=== PATIENT | male | born 1945 | race Caucasian/White ===

== ENCOUNTER 2021-12-27 10:31 | Outpatient (CLI) | payer MEDICARE, BC ==
[2021-12-27 11:28] LABS: #Eosinphils 0.2 10x3/uL (0.0-0.5); #Monocytes 0.4 10x3/uL (0.0-1.1); #Neutrophils 4.3 10x3/uL (1.5-8.4); %Basophils 0.3 % (0.0-2.0); %Eosinophils 3.2 % (0.0-6.0); %Monocytes 7.4 % (0.0-10.0); %Neutrophils 73.9 % (40.0-75.0); Hemoglobin 15.8 g/dL (13.5-17.5); Mean Corpuscular HGB CONC 32.7 g/dL (32.0-36.0); Mean Corpuscular Hemoglobin 30.9 pg (27.0-33.0); Mean Corpuscular Volume 94.3 fl (81.2-95.1); Mean Platelet Volume 9.1 fl (7.4-10.4); Platelet Count 216 10x3/uL (150-450); RBC Distribution Width 13.2 % (11.5-14.5); Red Blood Cell (RBC) Count 5.12 10x6/uL (4.32-5.72); White Blood Cell (WBC) Count 5.9 10x3/uL (3.5-10.5)
[2021-12-27 11:50] LABS: ALT (SGPT) 25 U/L (8-55); AST (SGOT) 20 U/L (5-34); Albumin 4.2 g/dL (3.4-4.8); Alkaline Phosphatase 56 U/L (40-110); Anion Gap 11 mmol/L (10-20); BUN (Urea Nitrogen) 19 mg/dL (8.4-25.7); Bilirubin, Total 0.5 mg/dL (0.2-1.2); Calc. Creatinine Clearance 0 mL/min (70-130); Calcium 8.9 mg/dL (7.8-10.44); Carbon Dioxide 28 mmol/L (23-31); Chloride 104 mmol/L (98-107); Globulin 2.8 g/dL (2.4-3.5); Glucose 112 mg/dL (83-110); Potassium 4.5 mmol/L (3.5-5.1); Sodium 138 mmol/L (136-145)
[2021-12-27 19:14] LABS: SARS-CoV-2 PCR by NAA Not Detected (NotDetected)
== END 2021-12-27 10:32 | disposition home or self-care (01) ==
LOC: LABBT 10:31
PROVIDERS: ATTEND Internal Medicine Cardiovascular Disease
DX: Z01.812 Encounter for preprocedural laboratory examination (principal); Z20.822 Contact with and (suspected) exposure to COVID-19
CPT/HCPCS: 80053; 85025; U0003; U0005

== ENCOUNTER 2022-01-01 05:54 | Day surgery (SDC) | payer MEDICARE, BC ==
[2021-12-27 09:00] VITALS: BMI 31.8
[2022-01-01] MEDS ORDERED: Midazolam HCl 2 mg/2 ml Vial ONE (07:01)
[2022-01-01] MEDS ORDERED: Fentanyl 100 MCG/2 ML VIAL ONE (07:02)
[2022-01-01] MEDS ORDERED: Heparin 10,000 UNITS/ 10 ML VIAL ONE (07:31)
[2022-01-01 10:24] LABS: ALT (SGPT) 18 U/L (8-55); AST (SGOT) 15 U/L (5-34); Albumin 3.7 g/dL (3.4-4.8); Alkaline Phosphatase 53 U/L (40-110); Bilirubin, Direct 0.2 mg/dL (0.1-0.3); Bilirubin, Total 0.5 mg/dL (0.2-1.2); Cholesterol 233 mg/dl (< 200 Desired); HDL Cholesterol 39 mg/dL (>60 Neg Risk); LDL Cholesterol, Calculated 158 mg/dL; Protein, Total 6.5 g/dL (5.8-8.1); Triglycerides 182 mg/dL (Less than 150)
== END 2022-01-01 12:35 | disposition home or self-care (01) ==
LOC: CCL 05:54
PROVIDERS: ATTEND Internal Medicine Cardiovascular Disease
PROC: 4A023N7 Measurement of Cardiac Sampling and Pressure, Left Heart, Percutaneous Approach (ICD-10-PCS; principal; 2022-01-01)
PROC: B2111ZZ Fluoroscopy of Multiple Coronary Arteries using Low Osmolar Contrast (ICD-10-PCS; 2022-01-01)
DX: I35.0 Nonrheumatic aortic (valve) stenosis (principal); I25.10 Atherosclerotic heart disease of native coronary artery without angina pectoris; I25.84 Coronary atherosclerosis due to calcified coronary lesion; I10 Essential (primary) hypertension; N40.0 Benign prostatic hyperplasia without lower urinary tract symptoms; I45.10 Unspecified right bundle-branch block; K21.9 Gastro-esophageal reflux disease without esophagitis; Z87.891 Personal history of nicotine dependence; Z79.899 Other long term (current) drug therapy
CPT/HCPCS: 36415; 80061; 80076; J1644; J2250; J3010

== ENCOUNTER 2022-01-10 12:14 | Outpatient (CLI) | payer MEDICARE, BC ==
[2022-01-10 13:35] LABS: Hemoglobin 14.5 g/dL (13.5-17.5); Mean Corpuscular Hemoglobin 30.1 pg (27.0-33.0); Mean Platelet Volume 9.6 fl (7.4-10.4); Platelet Count 250 10x3/uL (150-450); Red Blood Cell (RBC) Count 4.82 10x6/uL (4.32-5.72); White Blood Cell (WBC) Count 6.3 10x3/uL (3.5-10.5)
[2022-01-10 13:46] LABS: Anion Gap 14 mmol/L (10-20); BUN (Urea Nitrogen) 17 mg/dL (8.4-25.7); Calc. Creatinine Clearance 0 mL/min (70-130); Calcium 9.1 mg/dL (7.8-10.44); Carbon Dioxide 26 mmol/L (23-31); Chloride 105 mmol/L (98-107); Glucose 92 mg/dL (83-110); Potassium 4.7 mmol/L (3.5-5.1); Sodium 140 mmol/L (136-145)
[2022-01-10 23:04] LABS: SARS-CoV-2 PCR by NAA Not Detected (NotDetected)
== END 2022-01-10 12:15 | disposition home or self-care (01) ==
LOC: LABBT 12:14
PROVIDERS: ATTEND Thoracic Surgery (Cardiothoracic Vascular Surgery)
DX: Z01.812 Encounter for preprocedural laboratory examination (principal); I25.10 Atherosclerotic heart disease of native coronary artery without angina pectoris; Z20.822 Contact with and (suspected) exposure to COVID-19
CPT/HCPCS: 80048; 85027; 86850; 86900; 86901; U0003; U0005

== ENCOUNTER 2022-01-10 12:30 | Inpatient (IN) | payer MEDICARE, BC ==
[2022-01-10 13:35] LABS: Hemoglobin 14.5 g/dL (13.5-17.5); Mean Corpuscular Hemoglobin 30.1 pg (27.0-33.0); Mean Platelet Volume 9.6 fl (7.4-10.4); Platelet Count 250 10x3/uL (150-450); Red Blood Cell (RBC) Count 4.82 10x6/uL (4.32-5.72); White Blood Cell (WBC) Count 6.3 10x3/uL (3.5-10.5)
[2022-01-10 13:46] LABS: Anion Gap 14 mmol/L (10-20); BUN (Urea Nitrogen) 17 mg/dL (8.4-25.7); Calc. Creatinine Clearance 0 mL/min (70-130); Calcium 9.1 mg/dL (7.8-10.44); Carbon Dioxide 26 mmol/L (23-31); Chloride 105 mmol/L (98-107); Glucose 92 mg/dL (83-110); Potassium 4.7 mmol/L (3.5-5.1); Sodium 140 mmol/L (136-145)
[2022-01-10 23:04] LABS: SARS-CoV-2 PCR by NAA Not Detected (NotDetected)
[2022-01-15] MEDS ORDERED: Dexamethasone 4 mg/ml Vial ONE (06:21)
[2022-01-15] MEDS ORDERED: Albumin 5% 500 ML ONE (06:21)
[2022-01-15] MEDS ORDERED: EPINEPHrine 1 MG/ML AMP ONE (06:21)
[2022-01-15] MEDS ORDERED: Bupivacaine PF 0.5% 30 ML VIAL ONE (06:21)
[2022-01-15] MEDS ORDERED: Heparin 10,000 UNITS/1 ML VIAL 30,000 UNITS in Sodium Chloride 0.9% 1,000 ML FS SCH (06:45)
[2022-01-15] MEDS ORDERED: Midazolam HCl 2 mg/2 ml Vial ONE (06:52)
[2022-01-15] MEDS ORDERED: Dexmedetomidine 200 MCG/2 ML VIAL ONE (06:52)
[2022-01-15] MEDS ORDERED: Phenylephrine 10 MG/ML VIAL ONE (06:52)
[2022-01-15] MEDS ORDERED: Fentanyl 250 MCG/5 ML VIAL ONE (06:52)
[2022-01-15] MEDS ORDERED: Sodium Chloride 0.9% 10 ML ONE (06:58)
[2022-01-15] MEDS ORDERED: Lidocaine 1% MPF 2 ML VIAL ONE (07:01)
[2022-01-15] MEDS ORDERED: Heparin 5,000 UNITS/ML VIAL ONE (07:40)
[2022-01-15] MEDS ORDERED: Ondansetron PF 4 MG/2 ML Vial ONE (07:40)
[2022-01-15] MEDS ORDERED: Thrombin 5000 UNITS/5 ML VIAL ONE (07:40)
[2022-01-15] MEDS ORDERED: Potassium Chloride 60 MEQ/30 ML VIAL ONE (07:40)
[2022-01-15] MEDS ORDERED: ePHEDrine 50 MG/ML VIAL ONE (07:40)
[2022-01-15] MEDS ORDERED: Dexamethasone 20 MG/5 ML VIAL ONE (07:40)
[2022-01-15] MEDS ORDERED: Lidocaine 1% PF 5 ML VIAL ONE (07:40)
[2022-01-15] MEDS ORDERED: Vecuronium 10 MG VIAL ONE (07:40)
[2022-01-15] MEDS ORDERED: Ketorolac Tromethamine 30 MG/ML VIAL ONE (07:40)
[2022-01-15] MEDS ORDERED: PROPOFOL 200 MG/20 ML VIAL ONE (07:40)
[2022-01-15] MEDS ORDERED: Heparin 30,000 units/30 ml VIAL ONE (07:40)
[2022-01-15] MEDS ORDERED: Rocuronium Bromide 10 MG/ML (10ML VIAL) ONE (07:40)
[2022-01-15] MEDS ORDERED: Magnesium Sulfate 1 GM/2 ML VIAL ONE (07:40)
[2022-01-15] MEDS ORDERED: Calcium Chloride 1 GM/10 ML Abboject SYRINGE ONE (07:40)
[2022-01-15] MEDS ORDERED: Cardioplegic Soln 1,000 ML BAG ONE (07:40)
[2022-01-15] MEDS ORDERED: Lidocaine 2% PF 100 mg/5 ml Syringe ONE (07:40)
[2022-01-15] MEDS ORDERED: Aminocaproic Acid 5 GM/20 ML VIAL ONE (07:40)
[2022-01-15] MEDS ORDERED: Sodium Bicarb 50 MEQ/50 ML Abboject 8.4% SYRINGE ONE (07:40)
[2022-01-15] MEDS ORDERED: Papaverine 60 MG/2 ML VIAL ONE (07:40)
[2022-01-15] MEDS ORDERED: Hetastarch 6% 500 ML 500 ML IVPB PRN (10:45)
[2022-01-15] MEDS ORDERED: Ondansetron PF 4 MG/2 ML Vial IVP PRN (10:45)
[2022-01-15] MEDS ORDERED: Guaifenesin DM 100-10/5 ML UDCUP PO PRN (10:45)
[2022-01-15] MEDS ORDERED: Fentanyl 100 MCG/2 ML VIAL SLOW IVP PRN ×2 (10:45)
[2022-01-15] MEDS ORDERED: Magnesium 2 GM/50 ML 2 GM in Premix Bag 1 BAG IVPB SCH (10:45)
[2022-01-15] MEDS ORDERED: Potassium Chloride 20 MEQ/100 ML PREMIX BAG IVPB PRN (10:45)
[2022-01-15] MEDS ORDERED: D5 1/2 NS w/20 mEq KCL 1,000 ML IV SCH (10:45)
[2022-01-15] MEDS ORDERED: Acetaminophen 325 MG TAB PO PRN (10:45)
[2022-01-15] MEDS ORDERED: Bisacodyl 5 MG TAB PO PRN (10:45)
[2022-01-15] MEDS ORDERED: Promethazine HCl 25 MG/ML VIAL IM PRN (10:45)
[2022-01-15] MEDS ORDERED: Nitroglycerin 50 MG/250 ML BOT 250 ML IVPB PRN (10:45)
[2022-01-15] MEDS ORDERED: Morphine 2 MG/ML VIAL SLOW IVP PRN (10:45)
[2022-01-15] MEDS ORDERED: Norepinephrine 8 MG/0.9% NS 250 ML IVPB PRN (10:45)
[2022-01-15] MEDS ORDERED: Mag-Al 1200 mg/1200 mg/30 ML UDCUP PO PRN (10:45)
[2022-01-15] MEDS ORDERED: Bisacodyl 10 MG SUPP PR PRN (10:45)
[2022-01-15] MEDS ORDERED: traMADol HCl 50 MG TAB PO PRN (10:45)
[2022-01-15 11:06] LABS: Actual Bicarbonate (HCO3a) 20.4 mEq/L (22-28); Base Excess (BEa) -5.1 mEq/L (-2.0 to +3.0); CO2 Tension 39.4 mmHg (35.0-45.0); Calcium, Ionized (arterial) 1.06 mmol/L (1.12-1.30); O2 Tension (PaO2), arterial 87.6 mmHg (> 70.0); Potassium - ABG Lab 4.05 mmol/L (3.70-5.30); pH, Arterial 7.33 (7.35-7.45)
[2022-01-15 11:07] LABS: Puncture Site Arterial Line
[2022-01-15] MEDS ORDERED: Lantus 1000 UNITS/10 ML VIAL SC PRN (11:15)
[2022-01-15] MEDS ORDERED: Dextrose 5% in Water 1,000 ML IV PRN (11:15)
[2022-01-15] MEDS ORDERED: HUMULIN R 100 UNITS in Sodium Chloride 0.9% 100 ML IVPB SCH (11:15)
[2022-01-15] MEDS ORDERED: Dextrose 50% Abboject 50 ML SYRINGE SLOW IVP PRN (11:15)
[2022-01-15] MEDS ORDERED: Insulin Regular 300 UNITS/3 ML VIAL SC PRN (11:15)
[2022-01-15 11:17] LABS: #Basophils 0.1 thou/uL (0.0-0.2); #Eosinphils 0.1 thou/uL (0.0-0.7); #Lymphocytes 1.7 thou/uL (1.20-3.40); #Monocytes 0.8 thou/uL (0.11-0.59); #Neutrophils 15.8 thou/uL (1.40-6.50); %Basophils 0.3 % (0.0-1.0); %Eosinophils 0.5 % (0.0-10.0); %Lymphocytes 9.4 % (21.0-51.0); %Monocytes 4.3 % (0.0-10.0); %Neutrophils 85.5 % (42.0-75.0); Hemoglobin 13.6 g/dL (14.0-18.0); Mean Corpuscular HGB CONC 32.7 g/dL (32.0-36.0); Mean Corpuscular Hemoglobin 31.8 pg (27.0-31.0); Mean Corpuscular Volume 97.4 fL (78.0-98.0); Mean Platelet Volume 6.7 fL (7.4-10.4); Platelet Count 170 thou/uL (130-400); RBC Distribution Width 12.5 % (11.5-14.5); Red Blood Cell (RBC) Count 4.28 mill/uL (4.70-6.10); White Blood Cell (WBC) Count 18.5 thou/uL (4.8-10.8)
[2022-01-15 11:30] LABS: INR-International Normal Ratio 1.3; PTT 30.2 sec (22.9-36.1); Prothrombin Time 16.6 sec (12.0-14.7)
[2022-01-15] MEDS: Ketorolac Tromethamine 30 MG/ML VIAL IVP SCH ×2 (11:57→17:21)
[2022-01-15] MEDS: CEFAZOLIN 2 GM in Sodium Chloride 0.9% 100 ML IVPB SCH ×2 (13:30→21:02)
[2022-01-15 13:54] LABS: Anion Gap 7 mmol/L (10-20); BUN (Urea Nitrogen) 11 mg/dL (8.4-25.7); Calc. Creatinine Clearance 62 mL/min (70-130); Calcium 7.5 mg/dL (7.8-10.44); Chloride 109 mmol/L (98-107); Glucose 183 mg/dL (83-110); Potassium 4.1 mmol/L (3.5-5.1); Sodium 140 mmol/L (136-145)
[2022-01-15 14:05] LABS: Carbon Dioxide 18 mmol/L (23-31)
[2022-01-15 16:29] VITALS: BMI 32.7
[2022-01-15 17:22] LABS: Hemoglobin 13.1 g/dL (14.0-18.0)
[2022-01-15 18:10] LABS: Potassium 4.4 mmol/L (3.5-5.1)
[2022-01-15] MEDS ORDERED: Famotidine/PF 20 mg/2ml Vial SLOW IVP SCH (21:00)
[2022-01-16] MEDS: Ketorolac Tromethamine 30 MG/ML VIAL IVP SCH ×5 (00:13→23:33)
[2022-01-16 04:03] LABS: #Lymphocytes 0.5 thou/uL (1.20-3.40); #Monocytes 1.1 thou/uL (0.11-0.59); #Neutrophils 13.9 thou/uL (1.40-6.50); %Eosinophils 0.1 % (0.0-10.0); %Lymphocytes 3.2 % (21.0-51.0); %Monocytes 7.1 % (0.0-10.0); %Neutrophils 89.6 % (42.0-75.0); Mean Corpuscular HGB CONC 33.3 g/dL (32.0-36.0); Mean Corpuscular Hemoglobin 32.5 pg (27.0-31.0); Mean Corpuscular Volume 97.7 fL (78.0-98.0); Mean Platelet Volume 6.9 fL (7.4-10.4); Platelet Count 181 thou/uL (130-400); RBC Distribution Width 12.7 % (11.5-14.5); White Blood Cell (WBC) Count 15.6 thou/uL (4.8-10.8)
[2022-01-16 04:41] LABS: Anion Gap 5 mmol/L (10-20); BUN (Urea Nitrogen) 12 mg/dL (8.4-25.7); Calc. Creatinine Clearance 106 mL/min (70-130); Calcium 7.5 mg/dL (7.8-10.44); Carbon Dioxide 29 mmol/L (23-31); Chloride 109 mmol/L (98-107); Glucose 115 mg/dL (83-110); Potassium 4.4 mmol/L (3.5-5.1); Sodium 139 mmol/L (136-145)
[2022-01-16] MEDS: CEFAZOLIN 2 GM in Sodium Chloride 0.9% 100 ML IVPB SCH (06:44)
[2022-01-16] MEDS ORDERED: Nitroglycerin 0.4 MG TAB (25 Tab Bottle) SL PRN (07:03)
[2022-01-16] MEDS ORDERED: Milk Of Magnesia 30 ML UDCUP PO PRN (07:03)
[2022-01-16] MEDS ORDERED: Bisacodyl 10 MG SUPP PR PRN (07:03)
[2022-01-16] MEDS ORDERED: Mag-Al 1200 mg/1200 mg/30 ML UDCUP PO PRN (07:03)
[2022-01-16] MEDS ORDERED: diphenhydrAMINE 25 MG CAP PO PRN (07:03)
[2022-01-16] MEDS ORDERED: Zolpidem Tartrate 5 MG TAB PO PRN (07:03)
[2022-01-16] MEDS ORDERED: Mineral Oil ENEMA PR PRN (07:03)
[2022-01-16] MEDS ORDERED: Guaifenesin DM 100-10/5 ML UDCUP PO PRN (07:03)
[2022-01-16] MEDS ORDERED: Bisacodyl 5 MG TAB PO PRN (07:03)
[2022-01-16] MEDS: Aspirin 325 mg Enteric Coated Tablet PO SCH (08:05)
[2022-01-16] MEDS: Potassium Chloride 10 MEQ TAB PO SCH (08:05)
[2022-01-16] MEDS: Finasteride 5 MG TAB PO SCH (08:06)
[2022-01-16] MEDS: Furosemide 40 MG TAB PO SCH (08:06)
[2022-01-16] MEDS: Tamsulosin HCl 0.4 MG CAP PO SCH (08:06)
[2022-01-16] MEDS: Atorvastatin Calcium 40 MG TAB PO SCH (08:06)
[2022-01-16] MEDS: Magnesium 2 GM/50 ML 2 GM in Premix Bag 1 BAG IVPB SCH (08:07)
[2022-01-16] MEDS ORDERED: Aspirin 325 MG TAB PO SCH (09:00)
[2022-01-16] MEDS: traMADol HCl 50 MG TAB PO PRN ×2 (15:59→16:52)
[2022-01-17] MEDS: Ketorolac Tromethamine 30 MG/ML VIAL IVP SCH ×4 (05:34→23:48)
[2022-01-17] MEDS: Amiodarone 450 MG, Admixture Fee 1 EACH in Dextrose 5% in Water 250 ML IVPB SCH (06:44)
[2022-01-17] MEDS ORDERED: Amiodarone 150 MG, Admixture Fee 1 EACH in Dextrose 5% in Water 100 ML IVPB SCH (07:00)
[2022-01-17] MEDS ORDERED: Digoxin 0.5 MG/2 ML AMP SLOW IVP SCH ×2 (08:45→10:30)
[2022-01-17] MEDS: Aspirin 325 mg Enteric Coated Tablet PO SCH (08:59)
[2022-01-17] MEDS: Furosemide 40 MG TAB PO SCH (09:00)
[2022-01-17] MEDS: Finasteride 5 MG TAB PO SCH (09:00)
[2022-01-17] MEDS: Atorvastatin Calcium 40 MG TAB PO SCH (09:00)
[2022-01-17] MEDS: Tamsulosin HCl 0.4 MG CAP PO SCH (09:00)
[2022-01-17] MEDS: Potassium Chloride 10 MEQ TAB PO SCH (09:00)
[2022-01-17] MEDS: Magnesium 2 GM/50 ML 2 GM in Premix Bag 1 BAG IVPB SCH (09:01)
[2022-01-18] MEDS: Ketorolac Tromethamine 30 MG/ML VIAL IVP SCH ×2 (05:43→11:25)
[2022-01-18] MEDS: Amiodarone 450 MG, Admixture Fee 1 EACH in Dextrose 5% in Water 250 ML IVPB SCH (05:44)
[2022-01-18] MEDS: Potassium Chloride 10 MEQ TAB PO SCH (08:59)
[2022-01-18] MEDS: Aspirin 325 mg Enteric Coated Tablet PO SCH (08:59)
[2022-01-18] MEDS: Amiodarone 200 MG TAB PO SCH ×3 (08:59→20:27)
[2022-01-18] MEDS: Atorvastatin Calcium 40 MG TAB PO SCH (08:59)
[2022-01-18] MEDS: Finasteride 5 MG TAB PO SCH (09:00)
[2022-01-18] MEDS: Metoprolol Tartrate 25 MG TAB PO SCH ×2 (09:00→20:27)
[2022-01-18] MEDS: Furosemide 40 MG TAB PO SCH (09:00)
[2022-01-18] MEDS: Tamsulosin HCl 0.4 MG CAP PO SCH (09:00)
[2022-01-19 08:30] VITALS: TEMP 98.4
[2022-01-19 09:14] VITALS: BP 142/81
[2022-01-19] MEDS: Metoprolol Tartrate 25 MG TAB PO SCH (10:08)
[2022-01-19] MEDS: Atorvastatin Calcium 40 MG TAB PO SCH (10:08)
[2022-01-19] MEDS: Aspirin 325 mg Enteric Coated Tablet PO SCH (10:08)
[2022-01-19] MEDS: Tamsulosin HCl 0.4 MG CAP PO SCH (10:08)
[2022-01-19] MEDS: Potassium Chloride 10 MEQ TAB PO SCH (10:09)
[2022-01-19] MEDS: Furosemide 40 MG TAB PO SCH (10:09)
[2022-01-19] MEDS: Amiodarone 200 MG TAB PO SCH (10:09)
[2022-01-19] MEDS: Finasteride 5 MG TAB PO SCH (10:09)
== END 2022-01-19 11:55 | disposition home or self-care (01) | DRG 236 ==
LOC: SURG A 01-15 05:56 → CCU 01-15 10:30 → 2NO 01-16 12:41
PROVIDERS: ADMIT Thoracic Surgery (Cardiothoracic Vascular Surgery); ATTEND Thoracic Surgery (Cardiothoracic Vascular Surgery)
PROC: 02100Z9 Bypass Coronary Artery, One Artery from Left Internal Mammary, Open Approach (ICD-10-PCS; principal; 2022-01-15)
PROC: 0212093 Bypass Coronary Artery, Three Arteries from Coronary Artery with Autologous Venous Tissue, Open Approach (ICD-10-PCS; 2022-01-15)
PROC: 06BQ4ZZ Excision of Left Saphenous Vein, Percutaneous Endoscopic Approach (ICD-10-PCS; 2022-01-15)
PROC: 5A1221Z Performance of Cardiac Output, Continuous (ICD-10-PCS; 2022-01-15)
PROC: 02L70ZK Occlusion of Left Atrial Appendage, Open Approach (ICD-10-PCS; 2022-01-15)
DX: I25.10 Atherosclerotic heart disease of native coronary artery without angina pectoris (principal); I48.92 Unspecified atrial flutter; Z20.822 Contact with and (suspected) exposure to COVID-19; I10 Essential (primary) hypertension; E78.5 Hyperlipidemia, unspecified; I35.0 Nonrheumatic aortic (valve) stenosis; N40.0 Benign prostatic hyperplasia without lower urinary tract symptoms; I48.91 Unspecified atrial fibrillation; Z79.899 Other long term (current) drug therapy
CPT/HCPCS: 36415; 36416; 36430; 71045; 80048; 82805; 85025; 85027; 85610; 85730; 86850; 86900; 86901; 93005; 93010; 93798; 94002; 94150; C1776; J0171; J0282; J0690; J1100; J1160; J1642; J1644; J1885; J2001; J2250; J2370; J2405; J2440; J2704; J3010; J3370; J3475; J3480; J3490; J7070; P9045; S0017; S0020; S0028; U0003; U0005

== ENCOUNTER 2022-01-20 19:32 | Inpatient (IN) | payer MEDICARE, BC ==
[2022-01-20] MEDS ORDERED: Diltiazem 125 MG/25 ML ONE (19:42)
[2022-01-20 20:34] LABS: #Eosinphils 0.3 thou/uL (0.0-0.7); #Lymphocytes 1.1 thou/uL (1.20-3.40); #Monocytes 0.9 thou/uL (0.11-0.59); #Neutrophils 6.8 thou/uL (1.40-6.50); %Basophils 0.2 % (0.0-1.0); %Eosinophils 3.2 % (0.0-10.0); %Lymphocytes 11.8 % (21.0-51.0); %Monocytes 10.1 % (0.0-10.0); %Neutrophils 74.7 % (42.0-75.0); Hemoglobin 12.6 g/dL (14.0-18.0); Mean Corpuscular HGB CONC 33.9 g/dL (32.0-36.0); Mean Corpuscular Hemoglobin 32.7 pg (27.0-31.0); Mean Corpuscular Volume 96.6 fL (78.0-98.0); Platelet Count 277 thou/uL (130-400); RBC Distribution Width 12.5 % (11.5-14.5); Red Blood Cell (RBC) Count 3.86 mill/uL (4.70-6.10); White Blood Cell (WBC) Count 9.1 thou/uL (4.8-10.8)
[2022-01-20 20:47] LABS: INR-International Normal Ratio 1.2; PTT 29.1 sec (22.9-36.1); Prothrombin Time 14.9 sec (12.0-14.7)
[2022-01-20 21:02] LABS: ALT (SGPT) 20 U/L (8-55); AST (SGOT) 12 U/L (5-34); Albumin 3.4 g/dL (3.4-4.8); Alkaline Phosphatase 57 U/L (40-110); Anion Gap 15 mmol/L (10-20); BUN (Urea Nitrogen) 20 mg/dL (8.4-25.7); Bilirubin, Total 0.8 mg/dL (0.2-1.2); Calc. Creatinine Clearance 0 mL/min (70-130); Calcium 8.4 mg/dL (7.8-10.44); Carbon Dioxide 22 mmol/L (23-31); Chloride 102 mmol/L (98-107); Globulin 2.5 g/dL (2.4-3.5); Glucose 128 mg/dL (83-110); Magnesium 1.9 mg/dL (1.6-2.6); Protein, Total 5.9 g/dL (5.8-8.1); Sodium 135 mmol/L (136-145)
[2022-01-20 21:27] LABS: CKMB 1.8 ng/mL (0-6.6)
[2022-01-20] MEDS ORDERED: Enoxaparin Sodium 100 MG/ML SYRINGE ONE (22:29)
[2022-01-21 02:22] VITALS: BMI 33.3
[2022-01-21 03:25] LABS: Critical Call Chem Troponin I 2NO.ADG
[2022-01-21] MEDS ORDERED: Acetaminophen 325 MG TAB PO PRN (03:52)
[2022-01-21] MEDS ORDERED: Ondansetron PF 4 MG/2 ML Vial IVP PRN (03:52)
[2022-01-21 05:24] LABS: #Lymphocytes 0.9 thou/uL (1.20-3.40); %Basophils 0.5 % (0.0-1.0); %Eosinophils 3.6 % (0.0-10.0); %Lymphocytes 12.4 % (21.0-51.0); %Monocytes 10.7 % (0.0-10.0); %Neutrophils 72.9 % (42.0-75.0); Hemoglobin 11.7 g/dL (14.0-18.0); Mean Corpuscular HGB CONC 32.3 g/dL (32.0-36.0); Mean Corpuscular Hemoglobin 31.1 pg (27.0-31.0); Mean Corpuscular Volume 96.4 fL (78.0-98.0); Platelet Count 262 thou/uL (130-400); RBC Distribution Width 12.3 % (11.5-14.5); Red Blood Cell (RBC) Count 3.77 mill/uL (4.70-6.10); White Blood Cell (WBC) Count 6.9 thou/uL (4.8-10.8)
[2022-01-21 05:25] LABS: #Eosinphils 0.2 thou/uL (0.0-0.7); #Monocytes 0.7 thou/uL (0.11-0.59)
[2022-01-21 05:47] LABS: Anion Gap 11 mmol/L (10-20); BUN (Urea Nitrogen) 16 mg/dL (8.4-25.7); Calc. Creatinine Clearance 92 mL/min (70-130); Calcium 8.2 mg/dL (7.8-10.44); Carbon Dioxide 26 mmol/L (23-31); Chloride 104 mmol/L (98-107); Glucose 97 mg/dL (83-110); Magnesium 1.9 mg/dL (1.6-2.6); Potassium 4.3 mmol/L (3.5-5.1); Sodium 137 mmol/L (136-145)
[2022-01-21 05:53] LABS: Critical Call Chem Troponin I 2NO.MO; Troponin I 1.111 ng/mL (< 0.028)
[2022-01-21] MEDS ORDERED: traMADol HCl 50 MG TAB PO PRN (06:45)
[2022-01-21] MEDS ORDERED: Amiodarone 200 MG TAB PO SCH (09:00)
[2022-01-21] MEDS ORDERED: TACROLIMUS TOP SCH (09:00)
[2022-01-21] MEDS: Atorvastatin Calcium 40 MG TAB PO SCH (09:51)
[2022-01-21] MEDS: Tamsulosin HCl 0.4 MG CAP PO SCH (09:51)
[2022-01-21] MEDS: Metoprolol Tartrate 25 MG TAB PO SCH ×2 (09:51→20:58)
[2022-01-21] MEDS: Aspirin 325 mg Enteric Coated Tablet PO SCH (09:51)
[2022-01-21] MEDS: Furosemide 40 MG TAB PO SCH (09:51)
[2022-01-21] MEDS: Amiodarone 200 MG TAB PO SCH ×2 (16:54→20:58)
[2022-01-21] MEDS ORDERED: Senokot S 8.6-50 MG TAB PO PRN (17:01)
[2022-01-21 17:24] LABS: SARS-CoV-2 PCR by NAA Not Detected (NotDetected)
[2022-01-22 04:19] LABS: #Eosinphils 0.3 thou/uL (0.0-0.7); #Lymphocytes 1.1 thou/uL (1.20-3.40); #Monocytes 0.9 thou/uL (0.11-0.59); #Neutrophils 5.4 thou/uL (1.40-6.50); %Basophils 0.3 % (0.0-1.0); %Eosinophils 3.4 % (0.0-10.0); %Lymphocytes 14.8 % (21.0-51.0); %Monocytes 11.4 % (0.0-10.0); %Neutrophils 70.1 % (42.0-75.0); Hemoglobin 12.1 g/dL (14.0-18.0); Mean Corpuscular HGB CONC 33.9 g/dL (32.0-36.0); Mean Corpuscular Hemoglobin 32.5 pg (27.0-31.0); Platelet Count 281 thou/uL (130-400); RBC Distribution Width 12.3 % (11.5-14.5); Red Blood Cell (RBC) Count 3.71 mill/uL (4.70-6.10); White Blood Cell (WBC) Count 7.7 thou/uL (4.8-10.8)
[2022-01-22 04:40] LABS: Anion Gap 11 mmol/L (10-20); BUN (Urea Nitrogen) 16 mg/dL (8.4-25.7); Calc. Creatinine Clearance 91 mL/min (70-130); Calcium 8.6 mg/dL (7.8-10.44); Carbon Dioxide 26 mmol/L (23-31); Chloride 103 mmol/L (98-107); Glucose 90 mg/dL (83-110); Sodium 136 mmol/L (136-145)
[2022-01-22] MEDS: Metoprolol Tartrate 25 MG TAB PO SCH (08:25)
[2022-01-22] MEDS: Tamsulosin HCl 0.4 MG CAP PO SCH (08:25)
[2022-01-22] MEDS: Furosemide 40 MG TAB PO SCH (08:26)
[2022-01-22] MEDS: Aspirin 325 mg Enteric Coated Tablet PO SCH (08:26)
[2022-01-22] MEDS: Atorvastatin Calcium 40 MG TAB PO SCH (08:26)
[2022-01-22] MEDS: Amiodarone 200 MG TAB PO SCH ×2 (08:32→15:03)
[2022-01-22] MEDS ORDERED: Polyethylene Glycol 3350 17 GM Packet PO SCH (09:00)
[2022-01-22] MEDS ORDERED: Enoxaparin Sodium 40 MG/0.4 ML SYRINGE SC SCH (09:00)
[2022-01-22 12:08] VITALS: BP 101/60; TEMP 98.7
[2022-01-23] MEDS ORDERED: Aspirin 81 mg Enteric Coated Tablet PO SCH (09:00)
[2022-01-23] MEDS ORDERED: Apixaban 5 MG TAB PO SCH (09:00)
[2022-01-24] MEDS ORDERED: FLU VACC QS2021-22(65YR UP)/PF 240 MCG/0.7 ML SYRINGE IM ONE (09:00)
== END 2022-01-22 16:15 | disposition home or self-care (01) | DRG 281 ==
LOC: ERS 19:32 → 2NO 01-21 01:54 → OBSVTOIN 01-21 07:30
PROVIDERS: ADMIT Internal Medicine; ATTEND Hospitalist
DX: I97.190 Other postprocedural cardiac functional disturbances following cardiac surgery (principal); I21.A1 Myocardial infarction type 2; I45.2 Bifascicular block; I25.10 Atherosclerotic heart disease of native coronary artery without angina pectoris; I10 Essential (primary) hypertension; E78.5 Hyperlipidemia, unspecified; I48.0 Paroxysmal atrial fibrillation; R77.8 Other specified abnormalities of plasma proteins; D64.9 Anemia, unspecified; K21.9 Gastro-esophageal reflux disease without esophagitis; N40.0 Benign prostatic hyperplasia without lower urinary tract symptoms; Y83.8 Other surgical procedures as the cause of abnormal reaction of the patient, or of later complication, without mention of misadventure at the time of the procedure; Z79.82 Long term (current) use of aspirin; Z79.899 Other long term (current) drug therapy; Z95.1 Presence of aortocoronary bypass graft; Z87.891 Personal history of nicotine dependence
CPT/HCPCS: 36415; 71045; 80048; 80053; 82553; 83735; 84443; 84484; 85025; 85610; 85730; 93005; 96365; 96366; 96372; G0378; J1650; U0003; U0005

== ENCOUNTER 2022-04-18 09:25 | Outpatient (CLI) | payer MEDICARE, BC | END 2022-04-18 09:26 | disposition home or self-care (01) | LOC: BICMRI 09:25 | PROVIDERS: ATTEND Otolaryngology Plastic Surgery within the Head & Neck | DX: H91.21 Sudden idiopathic hearing loss, right ear (principal); R90.82 White matter disease, unspecified | CPT/HCPCS: 70553; 82565 ==

== ENCOUNTER 2022-05-15 08:14 | Outpatient (CLI) | payer MEDICARE, BC | END 2022-05-15 08:15 | disposition home or self-care (01) | LOC: CT 08:14 | PROVIDERS: ATTEND Otolaryngology Plastic Surgery within the Head & Neck | DX: H90.3 Sensorineural hearing loss, bilateral (principal) | CPT/HCPCS: 70480 ==

== ENCOUNTER 2022-10-10 13:30 | Outpatient (CLI) | payer MEDICARE, BC | END 2022-10-10 13:31 | disposition home or self-care (01) | LOC: CT 13:30 | PROVIDERS: ATTEND Nurse Practitioner Family | DX: H34.231 Retinal artery branch occlusion, right eye (principal) | CPT/HCPCS: 70496; 70498 ==

== ENCOUNTER 2024-10-22 13:53 | Outpatient (CLI) | payer MEDICARE | END 2024-10-22 13:54 | disposition home or self-care (01) | LOC: BICULT 13:53 | PROVIDERS: ATTEND Urology | DX: N43.3 Hydrocele, unspecified (principal); I86.1 Scrotal varices | CPT/HCPCS: 76870; 93976 ==